=== PATIENT | female | born 1995 | race African-American/Black ===

== ENCOUNTER 2020-08-17 19:53 | Emergency (ER) | payer OTHER ==
[2020-08-17 20:00] VITALS: BP 115/72; PULSE 77; TEMP 97; BMI 38.2
[2020-08-17] MEDS ORDERED: KETOROLAC TROMETHAMINE 30 MG/1 ML VIAL IM ONE (20:36)
[2020-08-17] MEDS ORDERED: KETOROLAC TROMETHAMINE 30 MG/1 ML VIAL ONE (20:38)
== END 2020-08-17 22:00 | disposition home or self-care (01) ==
LOC: JERFT 19:53
PROC: 3E0234Z Introduction of Serum, Toxoid and Vaccine into Muscle, Percutaneous Approach (ICD-10-PCS; principal; 2020-08-17)
DX: M25.561 Pain in right knee (principal)
CPT/HCPCS: 73562-TC-RT-FY; 99284-25

== ENCOUNTER 2021-04-30 12:39 | Emergency (ER) | payer OTHER ==
[2021-04-30 12:58] VITALS: BP 129/71; PULSE 97; TEMP 98; BMI 34.7
[2021-04-30 14:58] LABS: BASO % 0.4 % (0-2.0); EOS % 1.9 % (0-4.5); HEMATOCRIT 30.7 % (32.4-45.2); HEMOGLOBIN 10.4 GM/dL (10.7-15.3); LYMPH % 17.5 % (8-40); MCH 30.8 pg (25.7-33.7); MCHC 33.8 g/dl (32.0-36.0); MEAN CELL VOLUME 91.2 fl (80-96); MEAN PLT VOLUME 7.2 fl (7.5-11.1); MONO % 8.4 % (3.8-10.2); NEUT % 71.8 % (42.8-82.8); PLATELET COUNT 327 10^3/uL (134-434); RBC 3.36 M/mm3 (3.60-5.2); RDW 13.5 % (11.6-15.6); WHITE BLOOD COUNT 6.9 K/mm3 (4.0-10.0)
[2021-04-30 15:03] LABS: EPI CELLS 27 /uL (0-25.1); HYALINE CASTS 35 /uL (0-3.1); URINE APPEARANCE TURBID; URINE BILIRUBIN 2+ (NEGATIVE); URINE COLOR RED; URINE GLUCOSE (UA) NEGATIVE (NEGATIVE); URINE KETONE NEGATIVE (NEGATIVE); URINE LEUK ESTERASE 2+ (NEGATIVE); URINE NITRITE POSITIVE (NEGATIVE); URINE PROTEIN 2+ (NEGATIVE); URINE RBC 39982 /uL (0-23.9); URINE WBC 107 /uL (0-25.8)
[2021-04-30 15:17] LABS: CALCIUM 8.5 mg/dL (8.5-10.1)
[2021-04-30 15:18] LABS: ALBUMIN 3.7 g/dl (3.4-5.0)
[2021-04-30 15:20] LABS: CREATININE 0.7 mg/dL (0.55-1.3)
[2021-04-30 15:22] LABS: TOT PROT 6.7 g/dl (6.4-8.2)
[2021-04-30 15:38] LABS: BILIRUBIN,TOTAL 0.3 mg/dL (0.2-1)
== END 2021-04-30 17:19 | disposition home or self-care (01) ==
LOC: JERFT 12:39 → JER 12:39 → JERFT 17:19
DX: O04.6 Delayed or excessive hemorrhage following (induced) termination of pregnancy (principal); N39.0 Urinary tract infection, site not specified
CPT/HCPCS: 36415; 80053; 81003; 84702; 85025; 87086; 99283-25

== ENCOUNTER 2021-10-14 16:46 | Emergency (ER) | payer OTHER ==
[2021-10-14 16:58] VITALS: BP 114/75; PULSE 79; TEMP 98
== END 2021-10-14 20:17 | disposition left against medical advice (07) ==
LOC: JER 16:46
DX: R55 Syncope and collapse (principal)
CPT/HCPCS: 99281-25

== ENCOUNTER 2022-11-10 20:25 | Emergency (ER) | payer OTHER ==
[2022-11-10 20:36] VITALS: BMI 33.3
[2022-11-10] MEDS ORDERED: ONDANSETRON 4 MG TABLET PO ONE (23:31)
[2022-11-10] MEDS ORDERED: KETOROLAC TROMETHAMINE 30 MG/1 ML VIAL IM ONE (23:31)
[2022-11-10] MEDS ORDERED: KETOROLAC TROMETHAMINE 30 MG/1 ML VIAL ONE (23:46)
[2022-11-10] MEDS ORDERED: ONDANSETRON *ODT* 4 MG TABLET ONE (23:46)
[2022-11-11 00:21] VITALS: BP 118/72; PULSE 68; RESP 15; TEMP 97.8
== END 2022-11-11 00:25 | disposition home or self-care (01) ==
LOC: JER 20:25
PROC: 3E0233Z Introduction of Anti-inflammatory into Muscle, Percutaneous Approach (ICD-10-PCS; principal; 2022-11-10)
DX: S09.90XA Unspecified injury of head, initial encounter (principal); R51.9 Headache, unspecified; R11.2 Nausea with vomiting, unspecified; Y04.8XXA Assault by other bodily force, initial encounter; Y07.410 Brother, perpetrator of maltreatment and neglect; Y93.9 Activity, unspecified; Y92.9 Unspecified place or not applicable
CPT/HCPCS: 36415; 70450-TC; 70486-TC; 84703; 99284-25